=== PATIENT | female | born 1955 | race Caucasian/White ===

== ENCOUNTER 2024-04-23 14:55 | Inpatient (IN) | payer MEDICARE, SELFPAY ==
[2024-04-23] VITALS (28 sets, daily range): BP systolic 94–146; BP diastolic 48–85; PULSE 62–97; RESP 16–18; TEMP 36.4–36.8; O2SAT 71–100; BMI 23.0; BMI 24.1
[2024-04-23] MEDS: 0.9 % SODIUM CHLORIDE 1000 ml 1,000 ML IV (15:25)
[2024-04-23 15:33] LABS: Basophils Percent Auto 0.6 % (0.0-3.0); Eosinophils Percent Auto 1.1 % (0.0-7.0); Hematocrit 21.3 % (33.0-51.0); Immature Granulocytes Pct Auto 0.2 %; Lymphocytes Percent Auto 18.5 % (20-44); Mean Corpuscular HGB Conc 32 gm/dL (32-36); Mean Corpuscular Hemoglobin 32 pg (26-34); Mean Corpuscular Volume 103 fL (80-100); Monocytes Percent Auto 4.5 % (0.0-11.0); Neutrophils Percent Auto 75.1 % (42.0-72.0); Platelet Count* 315 K/uL (140-440); RDW Coefficient of Variation % 13.2 % (11.5-15.5); Red Blood Count 2.07 m/uL (4.00-5.20)
[2024-04-23 15:36] LABS: Hemoglobin* 6.7 gm/dL (12.0-16.0); Slide Review Reflex No
[2024-04-23 15:46] LABS: Chloride* 109 mmol/L (96-114)
[2024-04-23 15:47] LABS: Potassium* 4.2 mmol/L (3.6-5.1); Sodium* 135 mmol/L (135-149)
[2024-04-23 15:49] LABS: Est. Creatinine Clearance* 42.68; Estimated Glomerular Filt Rate 60 ml/min
[2024-04-23 15:50] LABS: Anion Gap 7 mEq/L (7-15); Blood Urea Nitrogen* 33 mg/dL (7-30); Calcium* 8.3 mg/dL (8.4-10.6); Carbon Dioxide* 19 mmol/L (20-32); Glucose* 132 mg/dL (60-115)
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
[2024-04-23 15:52] LABS: Albumin* 3.5 g/dL (3.3-5.0); INR 0.94 (0.91-1.10); Prothrombin Time 13.1 Seconds
[2024-04-23 15:54] LABS: Bilirubin Direct* 0.1 mg/dL (0.0-0.5); Bilirubin Total* 0.1 mg/dL (0.1-1.5); Partial Thromboplastin Time* 25 Seconds (23-33)
[2024-04-23 15:55] LABS: Alanine Aminotransferase* 14 U/L (4-35); Alkaline Phosphatase* 87 U/L (40-150); Aspartate Amino Transferase* 20 U/L (12-35); Total Protein* 6.1 g/dL (6.0-8.3)
[2024-04-23 16:02] LABS: C Reactive Protein* < 0.5 mg/dL (0.5-1.0)
--- NOTE | 2024-04-23 16:32 | CRLHL7_ITS ---
For Patients: As a result of the 21st Century Cures Act, medical imaging exams and procedure reports are released immediately into your electronic medical record. You may view this report before your referring provider. If you have questions, please contact your health care provider. Indication: LOWER GI BLEED Technique: CT acquisition through the abdomen and pelvis was performed after administration of 95 mL of Isovue 370 intravenous contrast material. Imaging was performed in the noncontrast, arterial, and 90 second delayed phases. Image post-processing was performed in the sagittal and coronal planes. 3-D maximum intensity projection images in the sagittal and coronal planes were available for review. Please note that all CT scans at this facility use dose modulation, iterative reconstruction, and/or weight-based dosing when appropriate to reduce radiation dose to as low as reasonably achievable. Comparison: 02/07/2014. Findings: CARDIOVASCULAR: Heart: Normal in size. Pericardium: No pericardial effusion. Abdominal aorta: Moderate mixed atherosclerosis. Ectatic infrarenal abdominal aorta measuring up to 2.4 centimeter (4/78). Celiac trunk: Patent. No significant narrowing. Conventional hepatic arterial anatomy. SMA: Patent. No significant narrowing. CATHY: Patent. Renal arteries: Single right and duplicated left renal arteries. Patent. No significant narrowing. Iliac arteries: Moderate calcification. Patent. No significant narrowing. REMAINING ABDOMEN AND PELVIS: Evaluation of solid visceral organs is limited on unenhanced and arterial phase imaging of the abdomen. Medical devices: None. Lower thorax: 3 millimeter left lower lobe pulmonary nodule (5/1). Liver and biliary tree: No significant abnormality. Gallbladder: Normal. Spleen: No significant abnormality. Pancreas: Mild fatty atrophy. Adrenal glands: Redemonstration of 2.0 centimeter left adrenal adenoma (5/24). Kidneys and ureters: No hydronephrosis. No obstructing renal calculi. Subcentimeter hypoattenuating lesions are too small to characterize and are favored to represent cysts. Gastrointestinal tract: Postsurgical changes from partial sigmoid colectomy and partial right hemicolectomy. Moderate colonic diverticulosis without CT evidence of acute diverticulitis. Moderate stool burden. No evidence of acute appendicitis. No evidence of bowel obstruction. Peritoneal cavity: No free fluid or free air. Pelvic organs: Status post hysterectomy. Lymph nodes: No lymphadenopathy. Abdominal wall: Postsurgical changes are seen in the lower anterior midline abdominal wall. Musculoskeletal: Moderate degenerative changes of the bilateral hips. Moderate degenerative changes of the visualized spine. Impression: 1. No evidence of active extravasation. 2. Ectatic infrarenal abdominal aorta measuring up to 2.4 centimeter. 3. 3 millimeter left lower lobe pulmonary nodule. Consensus guidelines for incidentally detected lung nodule(s) less than [address], not applicable if known malignancy or immunocompromise: Low risk: No routine follow-up. High risk without suspicious morphology AND not in upper lobe: Consider CT at 12 months. High risk AND nodule(s) with suspicious morphology OR in upper lobe: Strongly consider CT at 12 months. (Mary Kay, et al. Radiology 2017) 4. Postsurgical changes from partial sigmoid colectomy and partial right hemicolectomy without evidence of bowel obstruction. Moderate stool burden. Please note that all CT scans at this facility use dose modulation, iterative reconstruction, and/or weight-based dosing when appropriate to reduce radiation dose to as low as reasonably achievable. Dictated by Mariusz Villarreal MD @ 04/23/2024 6:07:15 PM (Electronically Signed)
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
[2024-04-23] MEDS: OXYCODONE 5 MG TABLET 10 MG PO ×2 (17:50→22:07)
[2024-04-23] MEDS: SODIUM CHLORIDE 0.9 % (FLUSH) 10 ML SYRINGE 5 ML IVF (21:08)
[2024-04-23 21:25] LABS: Hemoglobin* 8.8 gm/dL (12.0-16.0)
--- NOTE | 2024-04-23 22:17 | PC.NURSE ---
Addendum entered by Jenny Church RN 04/24/24 01:53: At this time: was also updated regarding last Hgb of result 8.8 per draw at 2120 on 04/23/24. Original Note: MD Servin updated at this time that pt had 500 mL of liquid dark blood red stool at 2200. Cumulatively since approximately 1830, pt has had 950 mL total bloody liquid stool. VS: B/P 144/85, P 74, T 98.2, R 18, O2 sat 99% at 2205 (1 hour post transfusion). Pt stating, I don't feel so good again. occupational health nurse manager requested lab prepare 2 more units of blood per .
--- NOTE | 2024-04-23 22:53 | PM.DS1 ---
DS: Providers Provider Date Seen: 04/23/24 Date of admission: 04/23/24 17:17 Primary care physician: Not a Local Provider Admitting Clinician: Marky Servin MD Attending Physician on discharge: Marky Servin MD Date of Discharge: 04/23/24 DS: Diagnosis Discharge Diagnosis (1) Gastrointestinal bleeding, lower: Status: Acute Problem details: Likely lower GI bleeding. Transfuse as needed. Monitor vitals and bleeding. Serial hemoglobin. Transfer if unstable. DS: Summary Hospital Course Hospital Course: 69-year-old female admitted to the hospital with a 1-2 day history of rectal bleeding. This afternoon she was admitted to our hospital with a hemoglobin of 6.7 with ongoing bleeding. She received 2 units of packed red cells and a recheck of her hemoglobin at 9:20 p.m. was 8.8. Her vitals have been normal and stable. Since 9:20 p.m. however she has had large bloody stools estimated to be at least 500 mL of bright red blood. Because of concern that this could not be managed by intervention and because of concern for transfusion requirements exceeding are capabilities decision was made to transfer her to [facility]. Time Spent with Patient Time attestation: Total time spent providing and/or coordinating discharge services: Exam Const: Vital Signs, click to edit/add: Vital Signs - 24 hr 04/23/24 15:02 04/23/24 15:27 04/23/24 15:44 Temperature 97.8 F Pulse Rate 76 Pulse Rate [Pulse Oximeter] 84 Pulse Rate [orthos tatic lying Pulse Oximeter] Pulse Rate [orthos tatic sitting Puls e Oximeter] Pulse Rate [orthos tatic standing Pul se Oximeter] Respiratory Rate 16 Blood Pressure Blood Pressure [Le ft Arm] Blood Pressure [Le ft Upper Arm] Blood Pressure [Ri ght Upper Arm] 96/57 L Blood Pressure [or thostatic lying Le ft Arm] Blood Pressure [or thostatic sitting Left Arm] Blood Pressure [or thostatic standing Left Arm] Pulse Oximetry 97 95 100 Oxygen Delivery Me thod Room Air 04/23/24 15:45 04/23/24 15:46 04/23/24 15:46 Temperature Pulse Rate 77 78 78 Pulse Rate [Pulse Oximeter] Pulse Rate [orthos tatic lying Pulse Oximeter] Pulse Rate [orthos tatic sitting Puls e Oximeter] Pulse Rate [orthos tatic standing Pul se Oximeter] Respiratory Rate Blood Pressure 116/58 L 116/58 L Blood Pressure [Le ft Arm] Blood Pressure [Le ft Upper Arm] Blood Pressure [Ri ght Upper Arm] Blood Pressure [or thostatic lying Le ft Arm] Blood Pressure [or thostatic sitting Left Arm] Blood Pressure [or thostatic standing Left Arm] Pulse Oximetry 71 L 98 98 Oxygen Delivery Me thod 04/23/24 15:46 04/23/24 15:51 04/23/24 15:52 Temperature Pulse Rate 78 77 Pulse Rate [Pulse Oximeter] 76 Pulse Rate [orthos tatic lying Pulse Oximeter] Pulse Rate [orthos tatic sitting Puls e Oximeter] Pulse Rate [orthos tatic standing Pul se Oximeter] Respiratory Rate 18 Blood Pressure 116/58 L 130/66 Blood Pressure [Le ft Arm] Blood Pressure [Le ft Upper Arm] 130/66 Blood Pressure [Ri ght Upper Arm] Blood Pressure [or thostatic lying Le ft Arm] Blood Pressure [or thostatic sitting Left Arm] Blood Pressure [or thostatic standing Left Arm] Pulse Oximetry 98 99 99 Oxygen Delivery Me thod Room Air 04/23/24 16:00 04/23/24 16:02 04/23/24 16:15 Temperature Pulse Rate 79 79 78 Pulse Rate [Pulse Oximeter] Pulse Rate [orthos tatic lying Pulse Oximeter] Pulse Rate [orthos tatic sitting Puls e Oximeter] Pulse Rate [orthos tatic standing Pul se Oximeter] Respiratory Rate Blood Pressure 142/80 H Blood Pressure [Le ft Arm] Blood Pressure [Le ft Upper Arm] Blood Pressure [Ri ght Upper Arm] Blood Pressure [or thostatic lying Le ft Arm] Blood Pressure [or thostatic sitting Left Arm] Blood Pressure [or thostatic standing Left Arm] Pulse Oximetry 100 99 100 Oxygen Delivery Me thod 04/23/24 16:24 04/23/24 16:30 04/23/24 16:32 Temperature Pulse Rate 77 74 Pulse Rate [Pulse Oximeter] Pulse Rate [orthos tatic lying Pulse Oximeter] Pulse Rate [orthos tatic sitting Puls e Oximeter] Pulse Rate [orthos tatic standing Pul se Oximeter] Respiratory Rate Blood Pressure 122/79 124/61 Blood Pressure [Le ft Arm] Blood Pressure [Le ft Upper Arm] Blood Pressure [Ri ght Upper Arm] Blood Pressure [or thostatic lying Le ft Arm] Blood Pressure [or thostatic sitting Left Arm] Blood Pressure [or thostatic standing Left Arm] Pulse Oximetry 98 98 Oxygen Delivery Me thod 04/23/24 17:05 04/23/24 17:06 04/23/24 17:55 Temperature 97.6 F Pulse Rate 88 87 90 Pulse Rate [Pulse Oximeter] Pulse Rate [orthos tatic lying Pulse Oximeter] Pulse Rate [orthos tatic sitting Puls e Oximeter] Pulse Rate [orthos tatic standing Pul se Oximeter] Respiratory Rate 18 Blood Pressure 146/59 H 94/64 Blood Pressure [Le ft Arm] Blood Pressure [Le ft Upper Arm] Blood Pressure [Ri ght Upper Arm] Blood Pressure [or thostatic lying Le ft Arm] Blood Pressure [or thostatic sitting Left Arm] Blood Pressure [or thostatic standing Left Arm] Pulse Oximetry 99 90 99 Oxygen Delivery Me thod Room Air 04/23/24 18:00 04/23/24 18:00 04/23/24 18:13 Temperature 98.3 F 98.3 F Pulse Rate 88 Pulse Rate [Pulse Oximeter] 86 Pulse Rate [orthos tatic lying Pulse Oximeter] Pulse Rate [orthos tatic sitting Puls e Oximeter] Pulse Rate [orthos tatic standing Pul se Oximeter] Respiratory Rate 18 18 18 Blood Pressure 94/68 Blood Pressure [Le ft Arm] 94/68 Blood Pressure [Le ft Upper Arm] Blood Pressure [Ri ght Upper Arm] Blood Pressure [or thostatic lying Le ft Arm] Blood Pressure [or thostatic sitting Left Arm] Blood Pressure [or thostatic standing Left Arm] Pulse Oximetry 99 100 100 Oxygen Delivery Me thod Room Air Room Air Room Air 04/23/24 18:27 04/23/24 18:43 04/23/24 19:20 Temperature 97.8 F 98.2 F Pulse Rate 75 72 Pulse Rate [Pulse Oximeter] Pulse Rate [orthos tatic lying Pulse Oximeter] 85 Pulse Rate [orthos tatic sitting Puls e Oximeter] 85 Pulse Rate [orthos tatic standing Pul se Oximeter] 97 Respiratory Rate 18 18 Blood Pressure 105/58 L 109/67 Blood Pressure [Le ft Arm] Blood Pressure [Le ft Upper Arm] Blood Pressure [Ri ght Upper Arm] Blood Pressure [or thostatic lying Le ft Arm] 109/63 Blood Pressure [or thostatic sitting Left Arm] 103/63 Blood Pressure [or thostatic standing Left Arm] 95/48 L Pulse Oximetry 100 91 Oxygen Delivery Me thod Room Air Room Air 04/23/24 19:20 04/23/24 19:37 04/23/24 19:49 Temperature 98.2 F 98.2 F 98.2 F Pulse Rate 71 74 Pulse Rate [Pulse Oximeter] 71 Pulse Rate [orthos tatic lying Pulse Oximeter] Pulse Rate [orthos tatic sitting Puls e Oximeter] Pulse Rate [orthos tatic standing Pul se Oximeter] Respiratory Rate 18 18 18 Blood Pressure 133/51 L 97/56 L Blood Pressure [Le ft Arm] 109/67 Blood Pressure [Le ft Upper Arm] Blood Pressure [Ri ght Upper Arm] Blood Pressure [or thostatic lying Le ft Arm] Blood Pressure [or thostatic sitting Left Arm] Blood Pressure [or thostatic standing Left Arm] Pulse Oximetry 91 95 95 Oxygen Delivery Me thod Room Air Room Air Room Air 04/23/24 20:05 04/23/24 20:35 04/23/24 21:05 Temperature 97.7 F 97.6 F 98.2 F Pulse Rate 66 75 62 Pulse Rate [Pulse Oximeter] Pulse Rate [orthos tatic lying Pulse Oximeter] Pulse Rate [orthos tatic sitting Puls e Oximeter] Pulse Rate [orthos tatic standing Pul se Oximeter] Respiratory Rate 16 16 18 Blood Pressure 116/60 138/83 126/69 Blood Pressure [Le ft Arm] Blood Pressure [Le ft Upper Arm] Blood Pressure [Ri ght Upper Arm] Blood Pressure [or thostatic lying Le ft Arm] Blood Pressure [or thostatic sitting Left Arm] Blood Pressure [or thostatic standing Left Arm] Pulse Oximetry 97 99 98 Oxygen Delivery Me thod Room Air Room Air Room Air 04/23/24 22:05 Temperature 98.2 F Pulse Rate 74 Pulse Rate [Pulse Oximeter] Pulse Rate [orthos tatic lying Pulse Oximeter] Pulse Rate [orthos tatic sitting Puls e Oximeter] Pulse Rate [orthos tatic standing Pul se Oximeter] Respiratory Rate 18 Blood Pressure 144/85 H Blood Pressure [Le ft Arm] Blood Pressure [Le ft Upper Arm] Blood Pressure [Ri ght Upper Arm] Blood Pressure [or thostatic lying Le ft Arm] Blood Pressure [or thostatic sitting Left Arm] Blood Pressure [or thostatic standing Left Arm] Pulse Oximetry 99 Oxygen Delivery Me thod Room Air DS: Data Data Completed and Pending Labs on day of discharge: Labs from last 24 hours 04/23/24 04/23/24 21:20 15:23 WBC 12.70 H RBC 2.07 L Hgb 8.8 L 6.7 L* Hct 21.3 L MCV 103 H MCH 32 MCHC 32 RDW Coeff of Filomena 13.2 Plt Count 315 Neut % (Auto) 75.1 H Lymph % (Auto) 18.5 L [place] % (Auto) 4.5 Eos % (Auto) 1.1 Baso % (Auto) 0.6 Neut # (Auto) 9.50 H Lymph # (Auto) 2.30 [place] # (Auto) 0.60 Eos # (Auto) 0.10 Baso # (Auto) 0.10 Abs Immat Gran (auto) 0.00 Imm/Tot Granulo (auto) 0.2 INR 0.94 APTT 25 Sodium 135 Potassium 4.2 Chloride 109 Carbon Dioxide 19 L Anion Gap 7 BUN 33 H Creatinine 1.0 Estimated Creat Clear 42.68 Estimated GFR 60 Glucose 132 H Lactate Pending Calcium 8.3 L Total Bilirubin 0.1 Direct Bilirubin 0.1 AST 20 ALT 14 Alkaline Phosphatase 87 C-Reactive Protein < 0.5 L Total Protein 6.1 Albumin 3.5 Blood Type A Positive Antibody Screen NEGATIVE Crossmatch (AHG) See Detail Imaging CT scan - abdomen: Radiologist's impression: Indication: LOWER GI BLEED Technique: CT acquisition through the abdomen and pelvis was performed after administration of 95 mL of Isovue 370 intravenous contrast material. Imaging was performed in the noncontrast, arterial, and 90 second delayed phases. Image post-processing was performed in the sagittal and coronal planes. 3-D maximum intensity projection images in the sagittal and coronal planes were available for review. Please note that all CT scans at this facility use dose modulation, iterative reconstruction, and/or weight-based dosing when appropriate to reduce radiation dose to as low as reasonably achievable. Comparison: 02/07/2014. Findings: CARDIOVASCULAR: Heart: Normal in size. Pericardium: No pericardial effusion. Abdominal aorta: Moderate mixed atherosclerosis. Ectatic infrarenal abdominal aorta measuring up to 2.4 centimeter (4/78). Celiac trunk: Patent. No significant narrowing. Conventional hepatic arterial anatomy. SMA: Patent. No significant narrowing. CATHY: Patent. Renal arteries: Single right and duplicated left renal arteries. Patent. No significant narrowing. Iliac arteries: Moderate calcification. Patent. No significant narrowing. REMAINING ABDOMEN AND PELVIS: Evaluation of solid visceral organs is limited on unenhanced and arterial phase imaging of the abdomen. Medical devices: None. Lower thorax: 3 millimeter left lower lobe pulmonary nodule (5/1). Liver and biliary tree: No significant abnormality. Gallbladder: Normal. Spleen: No significant abnormality. Pancreas: Mild fatty atrophy. Adrenal glands: Redemonstration of 2.0 centimeter left adrenal adenoma (5/24). Kidneys and ureters: No hydronephrosis. No obstructing renal calculi. Subcentimeter hypoattenuating lesions are too small to characterize and are favored to represent cysts. Gastrointestinal tract: Postsurgical changes from partial sigmoid colectomy and partial right hemicolectomy. Moderate colonic diverticulosis without CT evidence of acute diverticulitis. Moderate stool burden. No evidence of acute appendicitis. No evidence of bowel obstruction. Peritoneal cavity: No free fluid or free air. Pelvic organs: Status post hysterectomy. Lymph nodes: No lymphadenopathy. Abdominal wall: Postsurgical changes are seen in the lower anterior midline abdominal wall. Musculoskeletal: Moderate degenerative changes of the bilateral hips. Moderate degenerative changes of the visualized spine. Impression: 1. No evidence of active extravasation. 2. Ectatic infrarenal abdominal aorta measuring up to 2.4 centimeter. 3. 3 millimeter left lower lobe pulmonary nodule. Discharge Plan Discharge Disposition: [facility] Date of Admission: 04/23/24 17:17 Primary Care Provider: Provider,Not a Local Discharge Orders: Transfer of Care to Other Hospital (ORDER); Ordered 04/23/24 Ordered By: Marky Servin Oxygen: No
[2024-04-24 00:10] VITALS: BP 88/48; PULSE 70; RESP 16; TEMP 36.7; O2SAT 97
[2024-04-24] MEDS: 0.9 % SODIUM CHLORIDE 250 ml IV (00:21)
[2024-04-24 00:32] VITALS: BP 100/52; PULSE 64; RESP 16; TEMP 37; O2SAT 96
[2024-04-24 01:02] VITALS: BP 121/65; PULSE 75; RESP 18; TEMP 36.6; O2SAT 98
--- NOTE | 2024-04-24 01:26 | PC.NURSE ---
Addendum entered by Jenny Church RN 04/24/24 01:32: Pt transferred to [facility] with third total unit of PRBC infusing. Original Note: Pt transferred to [facility] at 0121 by EMS. VS before transfer: B/P 121/65, P 75, R 18, T 97.9, O2 sat 98% on RA. Pt had received 2 units of PRBC and was receiving third unit per order when EMS arrived. Pt had no vomiting noted and had no further bloody stools noted since MD Servin was last updated last evening. Pt alert & able to follow directions upon transfer. IVs in place to bilateral forearms. Pt was able to transfer from bed to EMS stretcher with SBA. All belongings sent with patient and belongings sheet signed by patient prior to transfer. Pt reported she had alerted her family of her upcoming transfer prior to transferring from [facility].
--- NOTE | 2024-04-24 01:53 | PC.NURSE ---
Prior to discharge, nurse to nurse report given to [facility] by Educational Adviser.
== END 2024-04-24 01:21 | disposition short-term general hospital (02) | DRG 378 ==
LOC: ED 16:25 → MEDSURG 17:13
PROVIDERS: Admitting Provider Family Medicine; Emergency Provider Emergency Medicine; Visit Provider Family Medicine
DX: K92.2 Gastrointestinal hemorrhage, unspecified (principal); D62 Acute posthemorrhagic anemia; Z63.8 Other specified problems related to primary support group; I10 Essential (primary) hypertension; F41.9 Anxiety disorder, unspecified; J44.9 Chronic obstructive pulmonary disease, unspecified; F31.9 Bipolar disorder, unspecified; G89.29 Other chronic pain; F11.90 Opioid use, unspecified, uncomplicated; F17.210 Nicotine dependence, cigarettes, uncomplicated; Z62.820 Parent-biological child conflict; Z90.49 Acquired absence of other specified parts of digestive tract; Z63.5 Disruption of family by separation and divorce; R91.1 Solitary pulmonary nodule; I77.811 Abdominal aortic ectasia
CPT/HCPCS: 36415; 36430; 74174; 80048; 80076; 83605; 85018; 85025; 85610; 85730; 86140; 86850; 86900; 86901; 86922; 93005; 94761; 99284; 99285; A9270; J7030; J7050; P9016; Q9967

== ENCOUNTER 2024-04-24 01:15 | Outpatient (CLI) | payer MEDICARE, SELFPAY | END 2024-04-24 01:16 | disposition home or self-care (01) | LOC: AMB 04-27 22:17 | PROVIDERS: Visit Provider Family Medicine | DX: K92.2 Gastrointestinal hemorrhage, unspecified (principal) | CPT/HCPCS: A0425; A0434 ==